=== PATIENT | male | born 2000 | race African-American/Black ===

== ENCOUNTER 2022-04-19 08:23 | Emergency (ER) | payer BC, SELFPAY ==
--- NOTE | ~2022-04-19 | US_ITS ---
US scrotum doppler INDICATION: Left testicular swelling TECHNIQUE: Testicular sonogram utilizing grayscale and color Doppler FINDINGS: The testes are normal in size and appearance. No focal lesions are seen. The right testes measures 4.6 x 2 x 2.9 cm centimeters, and the left testis measures 5 x 2 x 2.7 cm cm. There is ila l vascular flow to both testes. The right and left epididymides appear normal. There are bilateral varicoceles.. IMPRESSION: 1. Bilateral varicoceles. Reviewed, dictated and finalized at location A. IMPRESSION: 1. Bilateral varicoceles.
[2022-04-19 08:26] VITALS: BP 149/94; PULSE 84; RESP 18; TEMP 36.2; O2SAT 100
--- NOTE | 2022-04-19 08:37 | ED.MALEGU ---
HPI - Male Genitourinary General Chief complaint: Urogenital-Male Stated complaint: lump beneath testicles Time Seen by Provider: 04/19/22 08:32 History of Present Illness HPI Narrative: Patient is a 21-year-old male who presents ER with swelling of his left testicle. Ongoing over the last day. He is also noticed a bump on the lateral aspect of the back of his testicle. No urinary frequency urgency or dysuria. He is not sexually active. No urethral discharge. Denies trauma. Patient currently on Bactrim for a cyst that was excised from his right groin. Related Data Allergies Allergy/AdvReac Type Severity Reaction Status Date / Time No Known Allergies Allergy Verified 04/19/22 08:24 Review of Systems Constitutional: Constitutional: Denies chills and Denies fever(s) Gastrointestinal: Gastrointestinal: Denies abdominal pain, Denies nausea and Denies vomiting Genitourinary: Genitourinary: Denies genital lesions, Denies dysuria, Denies penile discharge and Reports testicular pain (Swelling) PMFSH Past Medical History Medical History (Updated 04/19/22 @ 11:56 by Greg Avelar MD) Diabetes Surgical History Surgical History (Updated 04/19/22 @ 08:38 by Greg Avelar MD) No pertinent past surgical history Social History Social History (Updated 04/19/22 @ 08:38 by Greg Avelar MD) Smoking status: Never smoker Exam Narrative: GENERAL: Well-appearing, well-nourished, and in no acute distress. HEAD: Normocephalic, atraumatic. : Swelling of left testicle w/o mass or reproducible pain. No urethral discharge. No lesions of skin. Well-healed area where cyst was excised. No drainage. No perineal tenderness. EXTREMITIES: Normal range of motion. No edema. SKIN: Warm, dry, no rash. NEURO: Alert and oriented x3. PSYCH: Normal mood and affect. Course Course Emergency Course: Patient informed of results. I have also discussed this with the mother over the phone. Patient will be discharged. Vital Signs Vital signs: Vital Signs Temperature 97.2 F L 04/19/22 08:26 Pulse Rate 84 04/19/22 08:26 Respiratory Rate 18 04/19/22 08:26 Blood Pressure 149/94 H 09/24/22 08:26 Pulse Oximetry 100 09/24/22 08:26 Oxygen Delivery Room Air 04/19/22 08:26 Temperature 97.2 F L 04/19/22 08:26 Pulse Rate 84 04/19/22 08:26 Respiratory Rate 18 04/19/22 08:26 Blood Pressure 149/94 H 04/19/22 08:26 Pulse Oximetry 100 04/19/22 08:26 Oxygen Delivery Room Air 04/19/22 08:26 MDM - Male Genitourinary Lab Data Labs: Lab Results 04/19/22 Range/Units 08:53 Urine Color Yellow (Yellow) Urine Appearance Clear (Clear) Urine pH 5.5 (5.0-9.0) Ur Specific [place] 1.015 (1.001-1.035) Urine Protein Negative (Negative) mg/dL Urine Glucose (UA) 3+ H (Negative) mg/dL Urine Ketones Negative (Negative) mg/dL Ur Blood (Man) Negative (Negative) Urine Nitrate Negative (Negative) Urine Bilirubin Negative (Negative) Urine Urobilinogen 1.0 (<2.0) mg/dL Leukocyte Esterase Rfl Negative (Negative) CHRISTINA/UL Urine RBC 0-2 (0-2) /hpf Urine WBC 0-3 /hpf Urine Mucus Rare /lpf Discharge Plan Discharge Clinical Impression: Varicocele Patient Disposition: Home, Self-Care Condition: Stable Instructions: Varicocele (ED) Additional Instructions: Return the ER if you have chest pain or shortness of breath, you cannot keep down food or water, you have fever over 100.4 ?F, you have severe discomfort in your genitals. Follow-up/Referrals: PHYSICIAN,JOINT FILLER [Primary Care Provider] - Jacob Boo, [Physician] - 1 Week
[2022-04-19 09:15] LABS: Appearance Urine Clear (Clear); Bilirubin Urine Negative (Negative); Blood Urine Negative (Negative); Color Urine Yellow (Yellow); Glucose Urine UA 3+ mg/dL (Negative); Ketones Urine Negative (Negative); Leukocyte Esterase Ur Negative LEU/UL (Negative); Nitrate Urine Negative (Negative); Protein Urine Negative (Negative); Specific Grav Ur 1.015 (1.001-1.035); pH Urine 5.5 (5.0-9.0)
[2022-04-19 09:35] LABS: Mucus Urine Rare /lpf; RBC Urine 0-2 /hpf (0-2); WBC Urine 0-3 /hpf
[2022-04-19 10:16] LABS: Add Urine Microscopic? YES
== END 2022-04-19 12:14 | disposition home or self-care (01) ==
PROVIDERS: Emergency Provider Emergency Medicine
DX: I86.1 Scrotal varices (principal); E11.9 Type 2 diabetes mellitus without complications
CPT/HCPCS: 76870; 81001; 93976; 99284